=== PATIENT | male | born 1985 | race Caucasian/White ===

== ENCOUNTER 2023-12-02 15:39 | Emergency (ER) | payer BC, SELFPAY ==
[2023-12-02 15:49] VITALS: BP 150/93; PULSE 98; RESP 20; TEMP 36.6; O2SAT 98
--- NOTE | 2023-12-02 16:24 | ED.ABDPAIN ---
HPI - Abdominal Pain General Chief Complaint: Nausea/Vomiting/Diarrhea Stated Complaint: Abdominal Pain/Vomiting Time Seen by Provider: 12/02/23 16:13 Source: patient, family (Significant other) and RN notes reviewed Mode of arrival: ambulatory Limitations: no limitations History of Present Illness HPI narrative: Patient presents today complaining of nausea, vomiting, and abdominal pain. He had 1 episode of vomiting yesterday then 4-5 today. Last episode was 15 minutes prior to arrival. He currently rates his periumbilical abdominal pain 8/10 and has tried no [id number] treatment prior to arrival. He has also not tried to drink any fluids today in between vomiting episodes. Denies fever or diarrhea. Review of Systems Review of Systems: CONSTITUTIONAL: Denies body aches, fever, chills. + sweats EYES: Denies visual changes, redness, or discharge. ENT: Denies rhinorrhea, congestion, sore throat, or otalgia. CARDIOVASCULAR: Denies chest pain, palpitations, or edema. RESPIRATORY: Denies cough or dyspnea. GASTROINTESTINAL: + nausea, vomiting, abdominal pain GENITOURINARY: Denies dysuria or hematuria. SKIN: Denies rash, itching, or wounds. MUSCULOSKELETAL: Denies back pain, joint pain, or myalgia. NEUROLOGIC: Denies headache, numbness, tingling, or weakness. PSYCH: Denies depression or anxiety. PMFSH Comments At time of signature, I have reviewed and agree with nursing past medical, surgical, social and family history unless otherwise noted. Please see nursing chart for further information. There is no relevant family history pertinent to the presenting complaint Exam Narrative: GENERAL: Ill-appearing, well-nourished, and in no acute distress. Mildly diaphoretic HEAD: Normocephalic, atraumatic. EYES: EOMI. No redness or drainage. Conjunctivae normal. ENT: Mucous membranes pink and moist. NECK: Normal AROM. Supple. No lymphadenopathy. CHEST: No respiratory distress. Clear to auscultation. HEART: Regular rate and rhythm. No murmur appreciated. Normal peripheral pulses. ABDOMEN: Soft, nondistended, normal active bowel sounds. + tender in the right upper quadrant and epigastric area without rebound or guarding MUSCULOSKELETAL: No bony tenderness. EXTREMITIES: Normal range of motion. No edema. SKIN: Warm, no rash. Capillary refill normal. Normal skin turgor. NEURO: No focal deficits. Alert and oriented x3. Gait steady. PSYCH: Normal affect. No signs of depression or anxiety. Course Course Level of Care: Express Care Visit Vital Signs Vital signs: Vital Signs Temperature 98 F 12/02/23 15:49 Pulse Rate 98 12/02/23 15:49 Respiratory Rate 20 12/02/23 15:49 Blood Pressure 150/93 H 12/02/23 15:49 Pulse Oximetry 98 12/02/23 15:49 Oxygen Delivery Room Air 12/02/23 15:49 Temperature 98 F 12/02/23 15:49 Pulse Rate 98 12/02/23 15:49 Respiratory Rate 20 12/02/23 15:49 Blood Pressure 150/93 H 12/02/23 15:49 Pulse Oximetry 98 12/02/23 15:49 Oxygen Delivery Room Air 12/02/23 15:49 Reviewed Transfer Transfered to: [facility] Transportation: Other (Private vehicle) Transfer rationale: Abdominal pain, vomiting Accepting physician: Edelmira MDM - Abdominal Pain MDM Narrative Medical decision making narrative: Patient will be transferred to [facility] for further evaluation of his abdominal pain and vomiting. Differential Diagnosis Differential diagnosis: Likely abdominal pain and other (Cholecystitis, cholelithiasis, gastritis, gastric ulcer) Critical Care Time Critical Care Time Critical Care Time: No Discharge Plan Discharge Clinical Impression: Abdominal pain Qualifiers: Abdominal location: unspecified location Qualified Code(s): R10.9 - Unspecified abdominal pain Patient Disposition: Acute Care Hospital Condition: Stable Follow-up/Referrals: PHYSICIAN,ADMISSION SPECIALIST [Primary Care Provider] - Time of Disposition: 16:28
== END 2023-12-02 16:27 | disposition short-term general hospital (02) ==
PROVIDERS: Emergency Provider Nurse Practitioner
DX: R10.11 Right upper quadrant pain (principal); R10.13 Epigastric pain; J45.909 Unspecified asthma, uncomplicated; J42 Unspecified chronic bronchitis
CPT/HCPCS: 99212; G0463

== ENCOUNTER 2023-12-02 17:08 | Emergency (ER) | payer SELFPAY ==
[2023-12-02 17:14] VITALS: BP 147/91; PULSE 87; RESP 17; TEMP 36.6; O2SAT 100
--- NOTE | 2023-12-02 21:58 | PC.NURSE ---
Patient was called out in triage area to be taken back to a room; no answer.
== END 2023-12-02 22:36 | disposition left against medical advice (07) ==
LOC: ANHED 22:24
DX: R11.2 Nausea with vomiting, unspecified (principal)
CPT/HCPCS: 99199